=== PATIENT | female | born 1985 | race Caucasian/White ===

== ENCOUNTER 2018-06-04 21:12 | Emergency (ER) | payer OTHER ==
[~2018-06-04] VITALS: Ht 162.6 cm; Wt 53.5 kg
[2018-06-04] MEDS ORDERED: PROTONIX40 M1 (21:31)
[2018-06-04] MEDS ORDERED: REGLAN5 MG/5 ML (21:31)
[2018-06-05] MEDS ORDERED: ULTRACET PO (03:29)
[2018-06-05] MEDS ORDERED: CEFUROXIME500 MG PO (03:29)
== END 2018-06-05 03:39 | disposition home or self-care (01) ==
LOC: ER 21:12
DX: K59.09 Other constipation (principal); R10.2 Pelvic and perineal pain; R10.31 Right lower quadrant pain

== ENCOUNTER 2018-06-09 19:01 | Emergency (ER) | payer OTHER ==
[~2018-06-09] VITALS: Ht 162.6 cm; Wt 53.5 kg
[~2018-06-09 19:01] MED LIST: CEFUROXIME500 MG PO; PROTONIX40 M1; REGLAN5 MG/5 ML; ULTRACET PO
== END 2018-06-09 22:11 | disposition home or self-care (01) ==
LOC: ER 19:01
DX: N83.291 Other ovarian cyst, right side (principal); K59.09 Other constipation